=== PATIENT | male | born 1955 | race Caucasian/White ===

== ENCOUNTER 2022-10-16 09:15 | Day surgery (SDC) | payer MEDICARE, SELFPAY ==
--- NOTE | 2022-10-15 11:06 | HO.ANESPROP2 ---
Documented by User: Maia Bruner NP 10/15/22 11:06 HPI - Anesthesia Eval Consult details Narrative: 67yo M for Colonoscopy [facility] Past Medical History Medical History Abnormal colonoscopy BPH (benign prostatic hyperplasia) Elevated PSA High cholesterol Umbilical hernia Surgical History Surgical History (Updated 10/15/22 @ 10:15 by Nayla Lopez RN) No pertinent past surgical history Social History Social History Advance Directives: No Advance Directives Information Provided: Yes Meds Allergies Allergy/AdvReac Type Severity Reaction Status Date / Time No Known Allergies Allergy Unverified 10/15/22 10:11 Home Medications Medication Instructions Recorded Confirmed Last Taken Type ciclopirox 0.77 % topical cream appl topical BID 10/15/22 Unknown History finasteride 5 mg tablet 5 mg PO DAILY 10/15/22 Unknown History tamsulosin 0.4 mg capsule 0.4 mg PO DAILY 10/15/22 Unknown History Exam Exam Date and Time: October 15, 2022 110 Assessment and Plan Assessment Anesthesia Assessment: Chart Reviewed Documented by User: Kiara Tomlinson MD 10/16/22 09:27 [facility] Past Medical History Medical History Abnormal colonoscopy BPH (benign prostatic hyperplasia) Elevated PSA High cholesterol Umbilical hernia Family History Family history of problems with anesthesia: No Surgical History Surgical History (Updated 10/15/22 @ 10:15 by Nayla Lopez RN) No pertinent past surgical history History of Problems with Anesthesia: No Social History Social History Advance Directives: No Advance Directives Information Provided: Yes Meds Allergies Allergy/AdvReac Type Severity Reaction Status Date / Time No Known Allergies Allergy Unverified 10/15/22 10:11 Home Medications Medication Instructions Recorded Confirmed Last Taken Type ciclopirox 0.77 % topical cream appl topical BID 10/15/22 Unknown History finasteride 5 mg tablet 5 mg PO DAILY 10/15/22 Unknown History tamsulosin 0.4 mg capsule 0.4 mg PO DAILY 10/15/22 Unknown History Exam Airway Mallampati Class: II TM Dist: >3cm Neck ROM: Full Heart: rrr Lungs: cta Assessment and Plan Assessment Anesthesia Assessment: Anesthesia Plan Discussed Final Anesthetic Review Family History of Problems with Anesthesia: No History of Problems with Anesthesia: No NPO: Yes ASA Class: II Final Preanesthetic Review: No Changes in Pt Med Stat, Meds/Allgs Chart Reviewed and Consent Obtained/Reviewed Patient Risk: Intermediate Procedure Risk: Intermediate Anesthetic Plan Anesthetic Plan: MAC: Disposition: Standard PACU
[2022-10-16 09:23] VITALS: BMI 32.3
[2022-10-16] MEDS: Lactated Ringers 1,000 ML 100 ML IVCONT (09:50)
[2022-10-16 09:51] VITALS: BP 170/97; PULSE 73; RESP 16; TEMP 36.2; O2SAT 96
[2022-10-16 09:53] VITALS: BP 159/98; PULSE 63
--- NOTE | 2022-10-16 10:21 | MHC.SHP ---
Pre-Procedural Eval Section A Date of Service: 10/16/22 Section B Chief Complaint: screening Details of Present Illness: see H&P no changes Relevant Social History: None Present Medications: see Short Stay Collaborative assessment Medical History: No relevant PMH History of Previous Operations: No relevant previous surgery Allergies: Allergies Allergy/AdvReac Type Severity Reaction Status Date / Time No Known Allergies Allergy Unverified 10/15/22 10:11 Review of Systems Sugical H&P ROS: Negative: Constitution, Cardiovascular, Respiratory, Neurological, Psychiatric, Hem-Onc, Allergic/Immunologic, Gastrointestinal, Genitourinary, Musculoskeletal, Integumentary, Endocrine and Eyes/Ears/Nose/Throat Exam Surgical H&P Exam: Normal: HEENT, Normal: Heart, Normal: Lungs, Normal: Extremities, Normal: Abdomen, Normal: Skin and Normal: Neurological Plan Diagnosis/Plan: Unchanged I have reviewed the history and physical and performed a pertinent physical examination on my patient. No changes have occurred unless specified. Time Spent With Patient Time: Total time managing care of this patient today ____ minutes.
[2022-10-16 11:05] VITALS: BP 132/95; PULSE 60; RESP 16; TEMP 36.2; O2SAT 94
--- NOTE | 2022-10-16 11:15 | PM.OP ---
Brief Operative Note Date of Service: 10/16/22 Pre-op diagnosis: screening Post-op diagnosis: same Procedure: colonoscopy Surgeon: Octaviano Harding Anesthesia: MAC Was an Experimental Welder used for this Procedure?: No Estimated blood loss (mL): 1 Pathology: other Condition: stable Disposition: PACU
[2022-10-16 11:20] VITALS: BP 143/90; PULSE 60; RESP 16; TEMP 36.2; O2SAT 95
--- NOTE | 2022-10-16 11:56 | OP_ITS ---
DATE OF SERVICE: 10/16/2022 SURGEON: Octaviano Harding MD INDICATIONS: Colon cancer screening. PREOPERATIVE DIAGNOSIS: POSTOPERATIVE DIAGNOSIS: PROCEDURE PERFORMED: Colonoscopy to the terminal ileum with snare polypectomy. ESTIMATED BLOOD LOSS: COMPLICATIONS: ANESTHESIA: Monitored anesthesia care. ASSISTANTS: SPECIMENS: DESCRIPTION OF PROCEDURE: A history and physical was performed. The risks and benefits of the procedure were explained to the patient. Informed consent was obtained. The patient was placed in the left lateral decubitus position. A digital rectal exam was performed and was found to be normal. The Olympus pediatric video colonoscope was introduced into the rectum and advanced to the cecum without difficulty. The cecum was identified by transillumination, palpation, and identification of ileocecal valve. Examination was performed. The scope was removed. He tolerated the procedure well and was returned to the recovery area in stable condition. FINDINGS: The terminal ileum was normal. The visualized colonic mucosa was normal. The quality of the prep was good. In the right colon was a 10 mm polyp, which was removed with a snare and recovered via suction. No other polyps were identified. Retroflexed examination was normal. There was very minimal sigmoid diverticulosis. IMPRESSION: Colon polyp. RECOMMENDATION: Follow up the biopsy results. MD BLAIR Garnett/MEGHANL / [id number]
== END 2022-10-16 12:40 | disposition home or self-care (01) ==
PROVIDERS: PCP Internal Medicine; Visit Provider Internal Medicine Gastroenterology
PROC: 0DJD8ZZ Inspection of Lower Intestinal Tract, Via Natural or Artificial Opening Endoscopic (ICD-10-PCS; CPT 45378; principal; 2022-10-16 10:20)
DX: Z12.11 Encounter for screening for malignant neoplasm of colon (principal); D12.2 Benign neoplasm of ascending colon; K57.30 Diverticulosis of large intestine without perforation or abscess without bleeding; Z86.010 Personal history of colon polyps
CPT/HCPCS: 45385; 88305